=== PATIENT | male | born 1990 | race Caucasian/White ===

== ENCOUNTER 2016-11-21 08:04 | Inpatient (IN) | payer SELFPAY ==
[2016-11-21 08:35] LABS: BASOPHIL 0.1 % (0-2); EOSINOPHIL 0 % (0-5); HCT 46.9 % (42.0-52.0); LYMPHOCYTE 5.8 % (15-48); MCH 29.9 pg (25.0-31.0); MCHC 37.1 g/dL (32.0-36.0); MCV 80.6 fL (78.0-100.0); MONOCYTE 8.3 % (0-12); MPV 9.8 fL (6.0-9.5); NEUTROPHIL 85.8 % (41-80); PLT 342 K/uL (150-400); RBC 5.82 M/uL (4.70-6.00); RDW 12.7 % (11.5-14.0)
[2016-11-21 08:40] LABS: WBC 17.9 K/uL (4.0-10.5)
[2016-11-21 08:41] LABS: HGB 17.4 g/dl (13.2-18.0)
[2016-11-21 08:53] LABS: ALBUMIN 4.7 g/dL (3.5-5.0); BILIRUBIN - TOTAL 1.4 mg/dL (0.1-1.0); CREATININE 1.4 mg/dL (0.7-1.2); GLOBULIN (CALCULATION) 3.2 g/dL (2.2-4.2); MAGNESIUM 2.78 mg/dL (1.40-2.10); POTASSIUM 5.1 mmol/L (3.5-5.1); TOTAL PROTEIN 7.9 g/dL (6.4-8.3)
[2016-11-21 08:55] LABS: LACTIC ACID 3.6 mmol/L (0.5-2.2)
[2016-11-21 10:05] LABS: BILIRUBIN NEGATIVE (NEGATIVE); BLOOD 1+ Ery/uL (NEGATIVE); CLARITY CLEAR (CLEAR); COLOR YELLOW (YELLOW); GLUCOSE (U) 2+ mg/dL (NORMAL); KETONE (U) 3+ (LARGE) mg/dL (NEGATIVE); LEUKOCYTES NEGATIVE Leu/uL (NEGATIVE); NITRITE NEGATIVE (NEGATIVE); PROTEIN NEGATIVE (NEGATIVE); UROBILINOGEN 0.2 mg/dL (0.2-1.0)
[2016-11-21 10:08] LABS: BACTERIA TRACE; URINARY RBC RARE
[2016-11-21 10:09] LABS: SQUAMOUS EPITHELIAL CELLS RARE
[2016-11-21 14:49] LABS: HCT 39.7 % (42.0-52.0); HGB 15.1 g/dl (13.2-18.0); MCV 78.8 fL (78.0-100.0); MPV 9.5 fL (6.0-9.5); RDW 12.4 % (11.5-14.0); WBC 14.4 K/uL (4.0-10.5)
[2016-11-21 14:50] LABS: RBC 5.04 M/uL (4.70-6.00)
[2016-11-21 15:03] LABS: POTASSIUM 4.6 mmol/L (3.5-5.1)
[2016-11-21 20:37] LABS: CREATININE 0.9 mg/dL (0.7-1.2); POTASSIUM 4.7 mmol/L (3.5-5.1)
[2016-11-22 02:19] LABS: BASOPHIL 0 % (0-2); EOSINOPHIL 0 % (0-5); HCT 36.6 % (42.0-52.0); HGB 13.7 g/dl (13.2-18.0); LYMPHOCYTE 10.6 % (15-48); MCHC 37.4 g/dL (32.0-36.0); MCV 80.1 fL (78.0-100.0); MONOCYTE 10.5 % (0-12); MPV 8.9 fL (6.0-9.5); NEUTROPHIL 78.9 % (41-80); PLT 212 K/uL (150-400); RBC 4.57 M/uL (4.70-6.00); RDW 12.6 % (11.5-14.0); WBC 9.8 K/uL (4.0-10.5)
[2016-11-22 02:38] LABS: ALBUMIN 3.4 g/dL (3.5-5.0); BILIRUBIN - TOTAL 0.9 mg/dL (0.1-1.0); CREATININE 0.9 mg/dL (0.7-1.2); GLOBULIN (CALCULATION) 2.4 g/dL (2.2-4.2); MAGNESIUM 1.94 mg/dL (1.40-2.10); POTASSIUM 4.2 mmol/L (3.5-5.1); TOTAL PROTEIN 5.8 g/dL (6.4-8.3)
[2016-11-22 08:25] LABS: CREATININE 0.8 mg/dL (0.7-1.2)
[2016-11-22 08:31] LABS: FT4 (FREE T4) 0.752 ng/dL (0.93-1.70); TSH (THYROID STIM HORMONE) 2.04 uIU/mL (0.270-4.200)
[2016-11-22 16:35] LABS: CREATININE 0.8 mg/dL (0.7-1.2); POTASSIUM 3.5 mmol/L (3.5-5.1)
[2016-11-23 04:53] LABS: CREATININE 0.7 mg/dL (0.7-1.2); POTASSIUM 3.4 mmol/L (3.5-5.1)
[2016-11-23 04:58] LABS: BASOPHIL 0.2 % (0-2); EOSINOPHIL 0.7 % (0-5); HCT 33.8 % (42.0-52.0); HGB 12.5 g/dl (13.2-18.0); LYMPHOCYTE 28.9 % (15-48); MCH 30.1 pg (25.0-31.0); MCV 81.4 fL (78.0-100.0); MONOCYTE 11.6 % (0-12); MPV 9.7 fL (6.0-9.5); NEUTROPHIL 58.6 % (41-80); PLT 147 K/uL (150-400); RBC 4.15 M/uL (4.70-6.00); RDW 12.2 % (11.5-14.0); WBC 5.6 K/uL (4.0-10.5)
[2016-11-24 04:30] LABS: HCT 33.4 % (42.0-52.0); HGB 12.1 g/dl (13.2-18.0); MCH 29.8 pg (25.0-31.0); MCHC 36.2 g/dL (32.0-36.0); MCV 82.3 fL (78.0-100.0); MPV 9.9 fL (6.0-9.5); RBC 4.06 M/uL (4.70-6.00); RDW 12.2 % (11.5-14.0); WBC 4.6 K/uL (4.0-10.5)
[2016-11-24 04:47] LABS: CREATININE 0.7 mg/dL (0.7-1.2); POTASSIUM 3.3 mmol/L (3.5-5.1)
[2016-11-24] MEDS ORDERED: DIFLUCAN200 MG PO (10:48)
[2016-11-24] MEDS ORDERED: NOVOLOG VI100 UNIT/1 SQ (10:50)
[2016-11-24] MEDS ORDERED: LANTUS100 UNIT/1 SQ (10:50)
== END 2016-11-24 11:38 | disposition home or self-care (01) | DRG 637 ==
LOC: FER 08:04 → FICU 09:25 → FMS 11-23 19:06
PROVIDERS: Internal Medicine; Internal Medicine Cardiovascular Disease; Internal Medicine Nephrology; Surgery; ADMIT Internal Medicine
PROC: 0DB68ZX Excision of Stomach, Via Natural or Artificial Opening Endoscopic, Diagnostic (ICD-10-PCS; principal; 2016-11-23 11:00)
DX: E10.10 Type 1 diabetes mellitus with ketoacidosis without coma (principal); R65.11 Systemic inflammatory response syndrome (SIRS) of non-infectious origin with acute organ dysfunction; N17.9 Acute kidney failure, unspecified; K92.0 Hematemesis; E87.1 Hypo-osmolality and hyponatremia; I48.0 Paroxysmal atrial fibrillation; I48.91 Unspecified atrial fibrillation; Z79.4 Long term (current) use of insulin; K52.9 Noninfective gastroenteritis and colitis, unspecified; K20.8 Other esophagitis; I10 Essential (primary) hypertension; R00.0 Tachycardia, unspecified; E87.6 Hypokalemia
CPT/HCPCS: 36415; 36600; 71010; 80048; 80053; 81001; 82009; 82803; 82962; 83036; 83605; 83690; 83735; 84439; 84443; 84484; 85025; 86140; 87040; 88305; 88312; 93005; C9113; J1815; J2405; J2704

== ENCOUNTER 2022-06-01 13:47 | Emergency (ER) | payer OTHER ==
[~2022-06-01 13:47] MED LIST: 3IN1 COMMODE; ALDACTONE25 MG PO; ASCORBIC ACID500 MG PO; ASPIR 8181 MG PO; ASPIRIN CHEWABL81 MG PO; BACTRIM 400-801 EACH PO; DIFLUCAN200 MG PO; DUONEB 2.5-0.5M1 AMP NEB; ENTRESTO 49 MG1 EACH SC; IBUPROFEN600 MG PO; KLOR-CON M20 T20 MEQ PO; LACTINEX1 EACH PO; LANTUS100 UNIT/1 SQ; LASIX20 MG PO; LASIX40 MG PO; LIPITOR40 MG PO; LISPRO SC; LOVENOX150 MG/1 M SC; MAG-OXIDE 400M400 MG PO; MULTI-VITAMIN1 EACH PO; NITROLINGUAL12 GM SL; NOVOLOG VI100 UNIT/1 SQ; PRILOSEC20 MG PO; PROTONIX 40MG T40 MG PO; SOLU-CORTEF100 MG IV; TOPROL XL 50 MG50 MG PO; TOUJEO MAX300 UNIT/1 SC; TRAZODONE HCL50 MG PO
[2022-06-01 15:05] LABS: BASOPHIL 0.5 % (0-2); HCT 37.5 % (42.0-52.0); HGB 12.8 g/dl (13.2-18.0); LYMPHOCYTE 22.7 % (15-48); MCH 27.1 pg (25.0-31.0); MCHC 34.1 g/dL (32.0-36.0); MCV 79.4 fL (78.0-100.0); MONOCYTE 7.6 % (0-12); MPV 9.1 fL (6.0-9.5); NRBC 0; PLT 441 K/uL (150-400); RBC 4.72 M/uL (4.70-6.00); RDW 15.9 % (11.5-14.0); WBC 12.5 K/uL (4.0-10.5)
[2022-06-01 15:26] LABS: ALBUMIN 3.4 g/dL (3.4-5.0); BILIRUBIN - TOTAL 0.7 mg/dL (0.2-1.0); BUN/CREAT RATIO (CALC) 15.6 RATIO; CREATININE 1.09 mg/dL (0.67-1.17); GLOBULIN (CALCULATION) 5.2 g/dL; POTASSIUM 4.3 mmol/L (3.5-5.1); TOTAL PROTEIN 8.6 g/dL (6.4-8.2)
== END 2022-06-01 17:59 | disposition other institution (70) ==
LOC: FER 13:47
PROVIDERS: Internal Medicine
DX: E10.69 Type 1 diabetes mellitus with other specified complication (principal); M86.8X7 Other osteomyelitis, ankle and foot; Z23 Encounter for immunization; Z20.822 Contact with and (suspected) exposure to COVID-19; Z28.310 Unvaccinated for COVID-19
CPT/HCPCS: 36415; 73630; 80053; 84145; 85025; 90471; 90715; J2543; J3370; J7040; U0002